=== PATIENT | male | born 1950 | race Caucasian/White ===

== ENCOUNTER 2017-08-18 05:03 | Emergency (ER) | payer OTHER, MEDICAID ==
[2017-08-18 05:10] VITALS: TEMP 97.3; O2SAT 96
[2017-08-18] MEDS ORDERED: fentaNYL 100 MCG/2 ML INJ ONE (05:55)
[2017-08-18] MEDS ORDERED: ONDANSETRON 4 MG/2 ML VIAL ONE (05:55)
[2017-08-18] MEDS ORDERED: NS 1,000 ML IV ONE (05:56)
[2017-08-18] MEDS ORDERED: fentaNYL 100 MCG/2 ML INJ IVP ONE (05:56)
[2017-08-18] MEDS ORDERED: ONDANSETRON 4 MG/2 ML VIAL IVP ONE (05:56)
--- NOTE | 2017-08-18 05:57 | EDPHY ---
H & P Stated Complaint: ABDOMINAL PAIN WITH N,V - Personal History Current Tetanus/Diphtheria Vaccine: Yes Current Tetanus Diphtheria and Acellular Pertussis (TDAP): Yes - Medical/Surgical History Hx Asthma: No Hx Chronic Respiratory Disease: Yes Hx Diabetes: Yes Hx Cardiac Disease: No Hx Renal Disease: No Hx Cirrhosis: No Hx Alcoholism: Yes Hx HIV/AIDS: No Hx Splenectomy or Spleen Trauma: No Other PMH: GALLSTONES. PROSTATES [place] 2016. COPD, DM II, tremors - Social History Smoking Status: Former smoker Time Seen by Provider: 08/18/17 05:27 HPI/ROS: Chief Complaint: Abdominal pain, nausea, vomiting HPI: This 67-year-old male woke this morning with crampy abdominal pain, nausea and vomiting. He has not had any diarrhea or constipation. No blood or coffee-ground appearing emesis. Pain is crampy and diffuse. He has a history of a similar episode of pain a week or 2 ago but did not have any nausea or vomiting associated with that. That has since resolved. He does have a history of prostate cancer and is scheduled to start radiation therapy tomorrow. He is not currently on any chemotherapeutic medications. He has had prostatectomy laparoscopically in the past but no other surgeries. No chest pain or shortness of breath. No fevers or chills. ROS: 10 point Review of Systems is negative except as noted in the HPI. PMH: Prostate cancer, benign tremor, depression Social History: No smoking, no alcohol, no recreational drug use Family History: non-contributory Physical Exam: Gen: Awake, Alert, No Distress HEENT: Nose: no rhinorrhea Eyes: PERRLA, EOMI Mouth: Moist mucosa Neck: Supple, no JVD Chest: nontender, lungs clear to auscultation Heart: S1, S2 normal, no murmur Abd: Soft, non-tender, no guarding Back: no CVA tenderness, no midline tenderness Ext: no edema, non-tender Skin: no rash Neuro: CN II-XII intact, Sensation grossly intact, Strength 5/5 in bilateral upper and lower extremities (Edward Adkins) Constitutional: Initial Vital Signs Temperature (C) 36.3 C 08/18/17 05:04 Heart Rate 60 08/18/17 05:04 Respiratory Rate 18 08/18/17 05:04 Blood Pressure 152/104 H 08/18/17 05:04 O2 Sat (%) 96 08/18/17 05:04 O2 Delivery Mode Room Air Allergies/Adverse Reactions: No Known Allergies Allergy (Unverified 06/05/11 10:45) Home Medications: Medication Instructions Recorded Acetaminophen [Tylenol 325mg (*)] 325 mg PO DAILY PRN 05/02/16 Herbals/Supplements -Info Only 1 ea PO DAILY 05/02/16 Ranitidine HCl [Zantac] 150 mg PO BID 05/02/16 metFORMIN HCL [Glucophage 500 mg 1,000 mg PO BIDMEAL 05/02/16 (*)] Albuterol [Proventil Inhaler HFA 2 puffs IH Q4 PRN #0 mdi 07/20/16 (*)] DULoxetine [Cymbalta 60 MG (*)] 120 mg PO DAILY 07/20/16 Haloperidol [Haldol 1 MG (*)] 2 mg PO HS #0 tab 07/20/16 Primidone [Mysoline] 50 mg PO HS #0 tab 07/20/16 Medical Decision Making - Diagnostics Imaging Results: Imaging Impressions Abdomen CT 08/18/17 07:08 Impression: 1. Mild gallbladder distention with cholelithiasis without evidence of cholecystitis. 2. Diverticulosis. 3. Moderate fat-containing periumbilical hernia. 4. Small hiatal hernia. 5. Additional findings, as above. Findings discussed with Yogesh Talbot MD on August 18, [address] abdomen pelvis reviewed by me and discussed with Dr. Bekcer shows distended gallbladder with stones which have been present on previous imaging studies. He has diverticulosis but no evidence for diverticulitis. He has a normal appendix. (Yogesh Talbot) ED Course/Re-evaluation: 07 patient signed out to Dr. Talbot pending CT scan of the abdomen pelvis and symptomatic improvement. (Edward Adkins) Patient is seen by me at 7:10. History reviewed and exam reveals mild rlq tenderness to deep palpation. Otherwise no masses and normal bowel sounds. Patient will be further medicated and he and I agreed on CT scan abdomen/pelvis IV Dilaudid. Re-evaluation 8:30 a.m.--patient tells me no pain now. No nausea. He and I discussed imaging and lab results. We will give him some food and drink as this appears to be nonsurgical. We will observe the patient and if he continues to feel well we will discharge him. He is agreeable to this plan Re-evaluation at 9:45 a.m. patient is stable. He has no pain. He and I discussed treatment plan including criteria for return importance of follow-up and further evaluation. He expresses understanding and agreement (Yogesh Talbot) Differential Diagnosis: The etiology of patient's abdominal pain is not clear. I have considered kidney stone, appendicitis, diverticulitis, small-bowel obstruction. (Yogesh Talbot) - Data Points Laboratory Results: Laboratory Results 08/18/17 05:55 08/18/17 05:55 08/18/17 08/18/17 08/18/17 06:30 05:55 05:55 WBC 13.02 10^3/uL H 10^3/uL (3.80-9.50) RBC 5.32 10^6/uL 10^6/uL (4.40-6.38) Hgb 15.5 g/dL g/dL (13.7-17.5) Hct 44.9 % % (40.0-51.0) MCV 84.4 fL fL (81.5-99.8) MCH 29.1 pg pg (27.9-34.1) MCHC 34.5 g/dL g/dL (32.4-36.7) RDW 13.9 % % (11.5-15.2) Plt Count 445 10^3/uL H 10^3/uL (150-400) MPV 8.7 fL fL (8.7-11.7) Neut % (Auto) 52.0 % % (39.3-74.2) Lymph % (Auto) 35.3 % % (15.0-45.0) [place] % (Auto) 7.8 % % (4.5-13.0) Eos % (Auto) 3.5 % % (0.6-7.6) Baso % (Auto) 0.8 % % (0.3-1.7) Nucleat RBC Rel Count 0.0 % % (0.0-0.2) Absolute Neuts (auto) 6.78 10^3/uL H 10^3/uL (1.70-6.50) Absolute Lymphs (auto) 4.60 10^3/uL H 10^3/uL (1.00-3.00) Absolute Monos (auto) 1.01 10^3/uL H 10^3/uL (0.30-0.80) Absolute Eos (auto) 0.45 10^3/uL H 10^3/uL (0.03-0.40) Absolute Basos (auto) 0.10 10^3/uL 10^3/uL (0.02-0.10) Absolute Nucleated RBC 0.00 10^3/uL 10^3/uL (0-0.01) Immature Gran % 0.6 % % (0.0-1.1) Immature Gran # 0.08 10^3/uL 10^3/uL (0.00-0.10) Sodium 142 mEq/L mEq/L (134-144) Potassium 3.7 mEq/L mEq/L (3.5-5.2) Chloride 106 mEq/L mEq/L (97-110) Carbon Dioxide 23 mEq/l mEq/l (22-31) Anion Gap 13 mEq/L mEq/L (8-16) BUN 15 mg/dL mg/dL (7-23) Creatinine 1.1 mg/dL mg/dL (0.7-1.3) Estimated GFR > 60 Glucose 213 mg/dL H mg/dL (70-100) Calcium 9.9 mg/dL mg/dL (8.5-10.4) Total Bilirubin 0.4 mg/dL mg/dL (0.1-1.4) AST 25 IU/L IU/L (17-59) ALT 35 IU/L IU/L (21-72) Alkaline Phosphatase 69 IU/L IU/L (38-126) Troponin I < 0.012 ng/mL ng/mL (0.000-0.034) Total Protein 8.2 g/dL g/dL (6.3-8.2) Albumin 4.5 g/dL g/dL (3.5-5.0) Lipase 148 IU/L IU/L (23-300) Urine Color YELLOW Urine Appearance CLEAR Urine pH 5.0 (5.0-7.5) Ur Specific [place] 1.026 (1.002-1.030) Urine Protein 1+ H (NEGATIVE) Urine Ketones NEGATIVE (NEGATIVE) Urine Blood NEGATIVE (NEGATIVE) Urine Nitrate NEGATIVE (NEGATIVE) Urine Bilirubin NEGATIVE (NEGATIVE) Urine Urobilinogen NEGATIVE EU EU (0.2-1.0) Ur Leukocyte Esterase NEGATIVE (NEGATIVE) Urine RBC 1-3 /hpf /hpf (0-3) Urine WBC NONE SEEN /hpf /hpf (0-3) Ur Epithelial Cells TRACE /lpf /lpf (NONE-1+) Hyaline Casts 1-5 /lpf /lpf (0-1) Urine Mucus TRACE /lpf /lpf (NONE-1+) Urine Glucose 1+ H (NEGATIVE) Medications Given: Discontinued Medications Fentanyl (Sublimaze) 50 mcg IVP EDNOW ONE Stop: 08/18/17 05:57 Last Admin: 08/18/17 05:58 Dose: 50 mcg Hydromorphone HCl (Dilaudid) 0.5 mg IVP EDNOW ONE Stop: 08/18/17 07:21 Last Admin: 08/18/17 07:26 Dose: 0.5 mg Sodium Chloride (Ns) 1,000 mls @ 0 mls/hr IV ONCE ONE; Wide Open PRN Reason: Protocol Stop: 08/18/17 05:57 Last Admin: 08/18/17 05:57 Dose: 1,000 mls Ketorolac Tromethamine (Toradol) 15 mg IVP EDNOW ONE Stop: 08/18/17 06:35 Last Admin: 08/18/17 06:35 Dose: 15 mg Ondansetron HCl (Zofran) 4 mg IVP EDNOW ONE Stop: 08/18/17 05:57 Last Admin: 08/18/17 05:58 Dose: 4 mg Departure - Departure Disposition: Home, Routine, Self-Care Clinical Impression: Abdominal pain Qualifiers: Abdominal location: generalized Qualified Code(s): R10.84 - Generalized abdominal pain Condition: Good Instructions: Acute Abdominal Pain (ED) Additional Instructions: Normal eating, drinking, activity. Return for worsening pain, fever, vomiting. Re-evaluation by Dr. Luke in the next 2-3 days. Referrals: Joesph Luke MD [Primary Care Provider] - 2-3 days without fail
--- NOTE | 2017-08-18 06:06 | CPEKG ---
Heart Rate: 49 RR Interval: 1224 P-R Interval: 132 QRSD Interval: 100 QT Interval: 456 QTC Interval: 412 P [place]: 66 QRS [place]: 28 T Wave [place]: -89 EKG Severity - BORDERLINE ECG - EKG Impression: SINUS BRADYCARDIA EKG Impression: BORDERLINE T ABNORMALITIES, INFERIOR LEADS Electronically Signed By: Edward Adkins 18-Aug-2017 07:15:18
[2017-08-18 06:11] LABS: % IMMATURE GRANULYOCYTES 0.6 % (0.0-1.1); ABSOLUTE IMMATURE GRANULOCYTES 0.08 10^3/uL (0.00-0.10); ADD DIFF? NO; ADD MORPH? NO; ADD SCAN? NO; ATYPICAL LYMPHOCYTE FLAG 0 (0-99); FRAGMENT RBC FLAG 0 (0-99); HEMATOCRIT 44.9 % (40.0-51.0); HEMOGLOBIN 15.5 g/dL (13.7-17.5); LEFT SHIFT FLG 0 (0-99); LIPEMIA HEMOLYSIS FLAG 90 (0-99); MEAN CELL HEMOGLOBIN 29.1 pg (27.9-34.1); MEAN CELL HEMOGLOBIN CONCENTR. 34.5 g/dL (32.4-36.7); MEAN CELL VOLUME 84.4 fL (81.5-99.8); MEAN PLATELET VOLUME 8.7 fL (8.7-11.7); PLATELET CLUMPS FLAG 0 (0-99); PLATELET COUNT 445 10^3/uL (150-400); RED BLOOD CELL COUNT 5.32 10^6/uL (4.40-6.38); RED CELL DISTRIBUTION WIDTH 13.9 % (11.5-15.2)
[2017-08-18 06:17] LABS: ALANINE AMINOTRANSFERASE 35 IU/L (21-72); ALBUMIN 4.5 g/dL (3.5-5.0); ALKALINE PHOSPHATASE 69 IU/L (38-126); ANION GAP 13 mEq/L (8-16); ASPARTATE AMINOTRANSFERASE 25 IU/L (17-59); BILIRUBIN,TOTAL 0.4 mg/dL (0.1-1.4); CALCIUM 9.9 mg/dL (8.5-10.4); CARBON DIOXIDE 23 mEq/l (22-31); CHLORIDE 106 mEq/L (97-110); CREATININE 1.1 mg/dL (0.7-1.3); GLOMERULAR FILTRATION RATE > 60; GLUCOSE 213 mg/dL (70-100); POTASSIUM 3.7 mEq/L (3.5-5.2); SODIUM 142 mEq/L (134-144); TOTAL PROTEIN 8.2 g/dL (6.3-8.2)
[2017-08-18 06:28] LABS: TROPONIN I < 0.012 ng/mL (0.000-0.034)
[2017-08-18] MEDS ORDERED: KETOROLAC 15 MG/1 ML SDV ONE (06:34)
[2017-08-18] MEDS ORDERED: KETOROLAC 15 MG/1 ML SDV IVP ONE (06:34)
[2017-08-18 06:38] LABS: COLOR YELLOW; LEUKOCYTE ESTERASE,URINE NEGATIVE (NEGATIVE); NITRITE,URINE NEGATIVE (NEGATIVE)
[2017-08-18 06:48] LABS: MUCUS TRACE /lpf (NONE-1+); WBC,URINE NONE SEEN /hpf (0-3)
[2017-08-18] MEDS ORDERED: HYDROmorphONE/DILAUDID 1 MG/ML INJ IVP ONE (07:20)
[2017-08-18 07:28] VITALS: RESP 16
[2017-08-18] MEDS ORDERED: IOPAMIDOL (ISOVUE-300) 100 ML BTL ONE (07:37)
[2017-08-18 09:57] VITALS: BP 143/80; PULSE 80
== END 2017-08-18 10:05 | disposition home or self-care (01) ==
PROC: 3E0337Z Introduction of Electrolytic and Water Balance Substance into Peripheral Vein, Percutaneous Approach (ICD-10-PCS; principal; 2017-08-18)
DX: R10.84 Generalized abdominal pain (principal); E11.9 Type 2 diabetes mellitus without complications; J44.9 Chronic obstructive pulmonary disease, unspecified; E86.9 Volume depletion, unspecified; Z79.84 Long term (current) use of oral hypoglycemic drugs; Z85.46 Personal history of malignant neoplasm of prostate; Z87.891 Personal history of nicotine dependence
CPT/HCPCS: 74177; 93005; 96361; 96374; 96375; 99285; J1170; J1885; J2405; J3010; Q9967

== ENCOUNTER 2018-01-19 12:53 | Inpatient (IN) | payer OTHER, MEDICAID ==
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
[2018-01-19] MEDS ORDERED: HYDROmorphONE/DILAUDID 2 MG/ML INJ IVP ONE (13:47)
[2018-01-19 13:55] LABS: PLATELET COUNT 318 10^3/uL (150-400)
[2018-01-19 14:09] LABS: INR 0.98 (0.83-1.16); PROTIME(PATIENT) 13.2 SEC (12.0-15.0)
[2018-01-19] MEDS ORDERED: HYDROmorphONE/DILAUDID 1 MG/ML INJ IVP PRN (14:23)
[2018-01-19] MEDS ORDERED: ONDANSETRON 4 MG/2 ML VIAL IVP PRN (14:23)
[2018-01-19] MEDS ORDERED: ONDANSETRON DISINTEGRATING 4 MG TAB PO PRN (14:23)
[2018-01-19] MEDS ORDERED: ALBUTEROL 60 PUFFS/8 GM MDI IH PRN (14:29)
[2018-01-19] MEDS ORDERED: ACETAMINOPHEN 325 MG TAB PO SCH (14:30)
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
--- NOTE | 2018-01-19 15:14 | CPEKG ---
Heart Rate: 85 RR Interval: 706 P-R Interval: 152 QRSD Interval: 96 QT Interval: 376 QTC Interval: 447 P [place]: 85 QRS [place]: 50 T Wave [place]: -27 EKG Severity - BORDERLINE ECG - EKG Impression: SINUS RHYTHM EKG Impression: LOW VOLTAGE IN FRONTAL LEADS EKG Impression: BORDERLINE T ABNORMALITIES, INFERIOR LEADS Electronically Signed By: Isabelle Bagley 19-Jan-2018 22:02:49
[2018-01-19] MEDS: ACETAMINOPHEN 500 MG TAB PO SCH ×2 (16:07→21:00)
[2018-01-19] MEDS: metFORMIN HCL 500 MG TAB PO SCH (17:30)
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
[2018-01-19] MEDS ORDERED: HALOPERIDOL 1 MG TAB PO SCH (21:00)
[2018-01-19] MEDS ORDERED: NON-FORMULARY NEW DRUG (Ranitidine Hcl [Zantac] 150 MG) PO SCH (21:00)
[2018-01-19] MEDS: PRIMIDONE 50 MG TAB PO SCH (21:00)
[2018-01-19] MEDS: FAMOTIDINE 20 MG TAB PO SCH (21:01)
[2018-01-19] MEDS: oxyCODONE IR 5 MG TAB PO PRN (21:01)
[2018-01-19] MEDS: HALOPERIDOL 2 MG TAB PO SCH (21:01)
[2018-01-20] MEDS: oxyCODONE IR 5 MG TAB PO PRN ×3 (00:16→08:04)
[2018-01-20] MEDS: ACETAMINOPHEN 500 MG TAB PO SCH ×3 (04:39→21:49)
[2018-01-20 04:44] LABS: PLATELET COUNT 283 10^3/uL (150-400)
[2018-01-20] MEDS ORDERED: NS 1,000 ML IV SCH (07:30)
[2018-01-20] MEDS: DULoxetine 60 MG CAP PO SCH (08:02)
[2018-01-20] MEDS: FAMOTIDINE 20 MG TAB PO SCH ×2 (08:13→21:50)
[2018-01-20] MEDS: metFORMIN HCL 500 MG TAB PO SCH ×2 (08:13→17:15)
[2018-01-20] MEDS: SENNOSIDES 1 TAB PO SCH ×2 (08:14→21:50)
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
[2018-01-20] MEDS ORDERED: HYDROmorphone HCL/NS 0.5 MG/ML SYR IVP PRN (16:24)
[2018-01-20] MEDS ORDERED: DEXAMETHASONE 4 MG/ML VIAL IVP ONE (18:10)
[2018-01-20] MEDS ORDERED: TRANEXAMIC ACID 3,000 MG in NS (SYRINGE) 50 ML IRR ONE (18:10)
[2018-01-20] MEDS ORDERED: ROPIVACAINE 0.2% 80 MG, EPINEPHrine 0.2 MG, KETOROLAC TROMETHAMINE 30 MG in SYRINGE 0 ML IU ONE (18:10)
[2018-01-20] MEDS ORDERED: ceFAZolin 2 GM/SWFI 2 GM/20 ML SYR IVP ONE (18:10)
[2018-01-20] MEDS ORDERED: LR 1,000 ML IV ONE (18:23)
--- NOTE | 2018-01-20 18:28 | PDANEPAE ---
ANE History of Present Illness total hip arthroplasty, L ANE Past Medical History - Cardiovascular History Hx Hypertension: No Hx Arrhythmias: No Hx Chest Pain: No Hx Coronary Artery / Peripheral Vascular Disease: No Hx CHF / Valvular Disease: No Hx Palpitations: No - Pulmonary History Hx COPD: Yes Hx Asthma/Reactive Airway Disease: No Hx Recent Upper Respiratory Infection: No Hx Oxygen in Use at Home: No Hx Sleep Apnea: No Sleep Apnea Screening Result - Last Documented: Positive Pulmonary History Comment: COPD - Neurologic History Hx Cerebrovascular Accident: No Hx Seizures: No Hx Dementia: No - Endocrine History Hx Diabetes: Yes Obesity: mild Endocrine History Comment: type 2 for about 5 years, denies peripheral neuropathy - Renal History Hx Renal Disorders: No - Liver History Hx Hepatic Disorders: No - Neurological & Psychiatric Hx Hx Neurological and Psychiatric Disorders: Yes Neurological / Psychiatric History Comment: TREMORS, essential - Cancer History Hx Cancer: Yes Cancer History Comment: PROSTATE CANCER - Congenital Disorder History Hx Congenital Disorders: No - GI History GERD: severe Hx Gastrointestinal Disorders: No - Other Health History Other Health History: NONE - Chronic Pain History Chronic Pain: No - Surgical History Prior Surgeries: GANGLION R WRIST REMOVAL. PLASTIC SURGERY EARS ANE Review of Systems Review of Systems: - Exercise capacity METS (RN): 4 METS ANE Patient History - Allergies Allergies/Adverse Reactions: No Known Allergies Allergy (Unverified 06/05/11 10:45) - Home Medications Home Medications: Acetaminophen [Tylenol 325mg (*)] 325 mg PO DAILY PRN 05/02/16 [Last Taken 05/23] Ranitidine HCl [Zantac] 150 mg PO BID 05/02/16 [Last Taken 07/19/16 05:00] metFORMIN HCL [Glucophage 500 mg (*)] 1,000 mg PO BIDMEAL 05/02/16 [Last Taken 07/16/16 18:00] DULoxetine [Cymbalta 60 MG (*)] 120 mg PO DAILY 07/20/16 [Last Taken Unknown] Primidone [Mysoline] 100 mg PO HS 01/19/18 [Last Taken Unknown] - NPO status NPO Since - Liquids (Date): 01/20/18 NPO Since - Liquids (Time): 00:00 NPO Since - Solids (Date): 01/20/18 NPO Since - Solids (Time): 00:00 - Anes Hx Anes Hx: post operative nausea (at age 13) - Smoking Hx Smoking Status: Former smoker (2 ppd x 30 years, until 25 ya) - Alcohol Use Alcohol Use: None - Family Anes Hx Family Anes Hx: none ANE Labs/Vital Signs - Labs Result Diagrams: 01/20/18 04:25 01/20/18 04:25 - Vital Signs Blood Pressure: 141/81 Heart Rate: 91 Respiratory Rate: 16 O2 Sat (%): 95 Height: 182.88 cm Weight: 92.533 kg ANE Physical Exam - Airway Neck exam: FROM Mallampati Score: Class 2 Mouth exam: normal dental/mouth exam - Pulmonary Pulmonary: clear to auscultation - Cardiovascular Cardiovascular: regular rate and rhythym - ASA Status ASA Status: III ANE Anesthesia Plan Anesthesia Plan: general endotracheal anesthesia (GA vs SAB discussed,questions answered. Pt. prefers GA.)
[2018-01-20] MEDS ORDERED: BUPI/epINEPH/KETOROLAC IU ONE (18:30)
[2018-01-20] MEDS ORDERED: fentaNYL 250 MCG/5 ML INJ ONE (18:37)
[2018-01-20] MEDS ORDERED: PROPOFOL 200 MG/20 ML VIAL ONE (18:37)
[2018-01-20] MEDS ORDERED: MIDAZOLAM 2 MG/2 ML VIAL ONE (18:45)
[2018-01-20] MEDS ORDERED: ONDANSETRON 4 MG/2 ML VIAL ONE (19:44)
[2018-01-20] MEDS ORDERED: fentaNYL 100 MCG/2 ML INJ IVP PRN (19:59)
[2018-01-20] MEDS ORDERED: NALOXONE HCL 0.4 MG/ML INJ IVP PRN (19:59)
[2018-01-20] MEDS ORDERED: HYDROmorphONE/DILAUDID 1 MG/ML INJ IVP PRN (19:59)
[2018-01-20] MEDS ORDERED: ALBUTEROL 3 ML DEYVIAL IH PRN (19:59)
[2018-01-20] MEDS ORDERED: SUGAMMADEX SODIUM 200 MG/2 ML VIAL IVP ONE (20:02)
[2018-01-20] MEDS ORDERED: DIPHENOXYLATE/ATROPINE LOMOTIL 1 TAB PO PRN (20:11)
[2018-01-20] MEDS ORDERED: POLYETHYLENE GLYCOL 3350 17 GM PKT PO PRN (20:11)
[2018-01-20] MEDS ORDERED: PROMETHAZINE HCL 25 MG/ML INJ IVP PRN (20:11)
[2018-01-20] MEDS ORDERED: MAGNESIUM HYDROXIDE 30 ML UDCUP PO PRN (20:11)
[2018-01-20] MEDS ORDERED: CYCLOBENZAPRINE 10 MG TAB PO PRN (20:11)
[2018-01-20] MEDS ORDERED: PROMETHAZINE HCL 25 MG SUPPR PR PRN (20:11)
[2018-01-20] MEDS ORDERED: LACTULOSE 20 GM/30 ML UDCUP PO PRN (20:11)
[2018-01-20] MEDS ORDERED: diphenhydrAMINE 25 MG CAP PO PRN (20:11)
[2018-01-20] MEDS ORDERED: BISACODYL 10 MG SUPP PR PRN (20:11)
--- NOTE | 2018-01-20 20:15 | POSTOPPROG ---
Post Op Note Date of Operation: 01/20/18 Surgeon: Giles Joshi Reprint Sorter: Erica Anesthesiologist: Rashid Anesthesia: GET(General Endotracheal) Pre-op Diagnosis: L displaced femoral neck fx Post-op Diagnosis: sme Indication: pain Procedure: L BOB Findings: fx femoral neck Inf/Abcess present in the surg proc area at time of surgery?: No EBL: 100-500
[2018-01-20] MEDS ORDERED: LR 1,000 ML IV SCH (20:30)
--- NOTE | 2018-01-20 20:54 | POSTANESTH ---
Post Anesthetic Evaluation Cardiovascular Status: Normal, Stable Respiratory Status: Similar to Pre-op Cond. Level of Consciousness/Mental Status: Can Participate in Eval Pain Control: Adequate, Prn Tx Ordered Nausea/Vomiting Control: Adequate, Prn Tx Ordered Complications Possibly Related to Anesthesia: None Noted
[2018-01-20] MEDS: ceFAZolin 2 GM/SWFI 2 GM/20 ML SYR IVP SCH (21:50)
[2018-01-20] MEDS: HALOPERIDOL 2 MG TAB PO SCH (21:50)
[2018-01-20] MEDS: PRIMIDONE 50 MG TAB PO SCH (21:50)
[2018-01-20] MEDS ORDERED: ceFAZolin 2 GM/DEXTROSE 100 ML IV SCH (22:00)
[2018-01-21] MEDS: ACETAMINOPHEN 500 MG TAB PO SCH ×3 (06:02→20:59)
[2018-01-21] MEDS: ceFAZolin 2 GM/SWFI 2 GM/20 ML SYR IVP SCH (06:02)
--- NOTE | 2018-01-21 06:45 | GOP ---
[f rep st] OPERATIVE REPORT DATE OF OPERATION: 01/20/2018 SURGEON: Amador Joshi MD SLOT EDITOR: Erica. ANESTHESIA: General. PREOPERATIVE DIAGNOSIS: Left displaced femoral neck fracture. POSTOPERATIVE DIAGNOSIS: Left displaced femoral neck fracture. PROCEDURE PERFORMED: Left total hip arthroplasty with x-ray. FINDINGS: ESTIMATED BLOOD LOSS: 200 cc. INDICATIONS: The patient has progressively worsening arthritis of the hip which has failed medical management. The patient understands the treatment options including continued non-operative care and has selected surgical intervention. The patient has decided to undergo total hip arthroplasty via the direct anterior approach, understanding the risks of the procedure including , but not limited to, neurovascular injury, infection, persistent pain, component wear and loosening, deep venous thrombosis, pulmonary embolism, limb length inequality, hip instability (including dislocation), and intra-operative fractures. DESCRIPTION OF PROCEDURE: After proper identification of the patient including verification and marking the surgical site, the patient was brought to the operating room and placed in the supine position. All bony prominences were well padded. Anesthesia was induced without complication and intravenous prophylactic antibiotics were administered prior to skin incision. The operative leg was placed in the Trumpf Arch table extension and the well leg in a Yellofin leg fuentes. The patient was prepped and draped in the usual sterile fashion. The C-arm was draped for intra-operative fluoroscopy to check acetabular position, femoral component position including leg length and femoral offset. Attention was then drawn to surgical exposure of the hip. An incision was made with a #10 Bard Chris blade starting 3 cm lateral and 3 cm distal to the anterior superior iliac spine measuring 8-10 cm and coursing distally toward the greater trochanter. The skin and subcutaneous tissues were divided sharply down to the fascia kacie. The fascia kacie was incised in line with the skin incision exposing the underlying tensor fascia kacie muscle. The muscle was bluntly elevated from the fascia and the first extracapsular Cobra retractor was placed laterally at the junction of the superior femoral neck and greater trochanter. The lateral femoral circumflex vessels were identified, cauterized , and divided with the Aquamantys bipolar cautery. The deep investing fascia of the TFL was divided to allow proper mobilization of the muscle preventing damage during the retraction. The reflected head of the rectus femoris muscle was elevated off the anterior hip capsule and a medial Cobra retractor was placed just proximal to the lesser trochanter. The anterior capsulotomy was made sharply from the superolateral acetabulum to the saddle junction of the superior femoral neck and greater trochanter, then coursing inferomedial towards the lesser trochanter. The retractors were then placed in the intracapsular position for femoral neck osteotomy. Corresponding to pre-operative templating, the osteotomy was made with the oscillating saw carefully protecting the greater trochanter and soft tissues. The femoral neck was found to be fractured as expected. The Arch table extension was then placed in 40 degrees external rotation. Attention was then drawn to the acetabular preparation. After placement of the anterior and posterior Cobra retractors outside the labrum and intracapsular, the circumferential labrum was removed sharply. The foveal contents were then removed and hemostasis obtained with cautery. The first reamer selected was sized using the removed femoral head. Reaming began with medialization and then commenced in 2 mm increments at 45 degrees of abduction and 15 degrees of anteversion using fluoroscopic navigation. Reaming ceased 1 mm less than the definitive acetabular component and corresponded to the pre-operative templating. The final acetabular component was inserted using fluoroscopy to achieve proper orientation yielding excellent purchase and stability in the acetabulum. The final acetabular liner was then placed and its seating confirmed. Attention was then turned to the femur. The Arch table extension was placed in extension and adduction, delivering the osteotomized femoral neck into the wound. A 2-pronged femoral elevator was placed at the calcar and another at the tip of the greater trochanter. The posterolateral capsule was released with cautery allowing mobilization of the femur lateral and anterior for preparation. The external rotators were visualized and preserved. A curette and rongeur were used to open the starting point for broaching. Serial broaching started with the #0 broach and ended with the broach that exhibited excellent fit in the proximal femur. A change in pitch during mallet strikes was accompanied by the inability to advance the broach any further. The trial reduction was performed and fluoroscopic navigation was utilized to check limb length. Adjustments were made to equalize limb length accordingly. After the final trials were accepted they were removed and the wound was copiously lavaged. The femoral component was seated to the same depth as the final broach and the femoral head was impacted onto the clean trunnion. The hip was then reduced for the final time and once more fluoroscopy was used to check that limb length equality was achieved. The wound was irrigated and closed in layers, the fascia kacie with 2-0 Quill, the subcutaneous tissue with 2-0 Quill, and the skin with Dermabond. Sterile dressings were applied. Final sharps and sponge counts were accurate. The patient was then transferred to a hospital bed and brought to the recovery room in stable condition. IMPLANTS: Accolade II size 7 at 127, acetabular component a 56 mm Tritanium, the liner is a Trident X3 36 mm, the head is a Biolox Delta 36 mm, +0. /[id number]/MODL MTDD
[2018-01-21] MEDS: DULoxetine 60 MG CAP PO SCH (08:46)
[2018-01-21] MEDS: oxyCODONE IR 5 MG TAB PO PRN (08:47)
[2018-01-21] MEDS: metFORMIN HCL 500 MG TAB PO SCH ×2 (08:47→19:26)
[2018-01-21] MEDS: SENNOSIDES 1 TAB PO SCH ×2 (08:47→21:00)
[2018-01-21] MEDS: FAMOTIDINE 20 MG TAB PO SCH ×2 (08:47→21:00)
[2018-01-21] MEDS ORDERED: POLYETHYLENE GLYCOL 3350 17 GM PKT PO SCH (09:00)
[2018-01-21] MEDS: ENOXAPARIN 40 MG/0.4 ML SYR SC SCH (09:18)
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
--- NOTE | 2018-01-21 11:22 | CPEKG ---
Heart Rate: 112 RR Interval: 536 P-R Interval: 136 QRSD Interval: 80 QT Interval: 316 QTC Interval: 432 P [place]: 82 QRS [place]: 68 T Wave [place]: 76 EKG Severity - OTHERWISE NORMAL ECG - EKG Impression: SINUS TACHYCARDIA Electronically Signed By: Fadi Uriostegui 23-Jan-2018 07:31:03
--- NOTE | 2018-01-21 15:46 | ASMTCMCOM ---
CM Note CM Note Notes: PT rec SNF and pt agreeable, requests referrals to [facility], [facility] and [facility]. Referrals sent in Allscripts. [facility] is first choice. CM to follow Date Signed: 01/21/2018 03:46 PM Electronically Signed By:YUMIKO Mariano
--- NOTE | 2018-01-21 19:29 | SOAPPROG ---
SOAP Progress Note Assessment/Plan: Assessment: POD1 s/p LTHA doing well WBAT LLE rec PT VTE ppx per medicine d/c per PT recs and hospitalist f/u [facility] 3 wks Plan: 01/21/18 19:28 Objective: Vital Signs Temp Pulse Resp BP Pulse Ox 36.7 C 96 16 96/69 L 91 L 01/21/18 16:21 01/21/18 16:21 01/21/18 16:21 01/21/18 16:21 01/21/18 16:21 Laboratory Results 01/21/18 04:50 01/20/18 04:25 01/20/18 01/21/18 01/22/18 05:59 05:59 05:59 Intake Total 250 1810 950 Output Total 1250 750 600 Balance -1000 1060 350 PT 13.2 SEC (12.0-15.0) 01/19/18 13:05 INR 0.98 (0.83-1.16) 01/19/18 13:05 ICD10 Worksheet Patient Problems: Problems Problem Status Onset Left displaced femoral neck fracture Acute Prostate cancer Acute
[2018-01-21] MEDS: PRIMIDONE 50 MG TAB PO SCH (21:00)
[2018-01-21] MEDS: HALOPERIDOL 2 MG TAB PO SCH (21:00)
[2018-01-22] MEDS: ACETAMINOPHEN 500 MG TAB PO SCH ×3 (05:50→21:12)
[2018-01-22] MEDS: ENOXAPARIN 40 MG/0.4 ML SYR SC SCH (08:12)
[2018-01-22] MEDS: DULoxetine 60 MG CAP PO SCH (08:13)
[2018-01-22] MEDS: metFORMIN HCL 500 MG TAB PO SCH ×2 (08:13→18:36)
[2018-01-22] MEDS: SENNOSIDES 1 TAB PO SCH ×2 (08:13→21:12)
[2018-01-22] MEDS: FAMOTIDINE 20 MG TAB PO SCH ×2 (08:13→21:12)
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
[2018-01-22] MEDS: oxyCODONE IR 5 MG TAB PO PRN ×3 (11:22→21:12)
[2018-01-22] MEDS: PRIMIDONE 50 MG TAB PO SCH (21:12)
[2018-01-22] MEDS: HALOPERIDOL 2 MG TAB PO SCH (21:12)
[2018-01-23] MEDS: ACETAMINOPHEN 500 MG TAB PO SCH (06:21)
[2018-01-23 08:03] VITALS: BP 115/69; PULSE 102; RESP 16; TEMP 98.9
[2018-01-23 08:04] VITALS: O2SAT 91
[2018-01-23] MEDS: ENOXAPARIN 40 MG/0.4 ML SYR SC SCH (08:13)
[2018-01-23] MEDS: metFORMIN HCL 500 MG TAB PO SCH (08:13)
[2018-01-23] MEDS: FAMOTIDINE 20 MG TAB PO SCH (08:14)
[2018-01-23] MEDS: SENNOSIDES 1 TAB PO SCH (08:14)
[2018-01-23] MEDS: DULoxetine 60 MG CAP PO SCH (08:14)
--- NOTE | 2018-01-23 10:33 | PDIAF ---
- Diagnosis Diagnosis: hip fracture Code Status: Full Code - Medication Management Discharge Medications: Medications to Continue on Transfer Ranitidine HCl [Zantac] 150 mg PO BID 05/02/16 [Last Taken 07/19/16 05:00] metFORMIN HCL [Glucophage 500 mg (*)] 1,000 mg PO BIDMEAL 05/02/16 [Last Taken 07/16/16 18:00] Albuterol [Proventil Inhaler HFA (*)] 2 puffs IH Q4 PRN #0 mdi 07/20/16 [Last Taken Unknown] DULoxetine [Cymbalta 60 MG (*)] 120 mg PO DAILY 07/20/16 [Last Taken Unknown] Haloperidol [Haldol 1 MG (*)] 2 mg PO HS #0 tab 07/20/16 [Last Taken Unknown] Primidone [Mysoline] 100 mg PO HS 01/19/18 [Last Taken Unknown] Acetaminophen [Tylenol ES 500 mg (*)] 1,000 mg PO Q8 tab 01/23/18 [Last Taken Unknown] Cyclobenzaprine [Flexeril 10 MG (*)] 10 mg PO Q8HRS PRN tab 01/23/18 [Last Taken Unknown] Enoxaparin [Lovenox 40 MG (*)] 40 mg SC DAILY #0 syr 01/23/18 [Last Taken Unknown] Sennosides [Senokot] 1 tab PO BID tab 01/23/18 [Last Taken Unknown] celeCOXIB [Celebrex (*)] 200 mg PO DAILY cap 01/23/18 [Last Taken Unknown] Discharge Medications: Refer to the Discharge Home Medication list for PRN reason. - Orders Services needed: Physical Therapy, Occupational Therapy Diet Recommendation: no restrictions on diet Diet Texture: Regular Texture Diet - Follow Up Care Current Providers and Referrals: Patient,NotPresent [Unknown] - As per Instructions
--- NOTE | 2018-01-23 11:00 | GDS ---
[f rep st] DISCHARGE SUMMARY DISCHARGE DIAGNOSES: 1. Left femoral neck fracture. 2. Chronic obstructive pulmonary disease. 3. Tremor. 4. History of prostate cancer. 5. Tachycardia. 6. Anemia. CONSULTANTS: Dr. Joshi, orthopedic surgery. HOSPITAL COURSE AND STAY BY PROBLEM: Left femoral neck fracture: The patient was admitted to the [facility] where he was initially seen by Jim Larson and ultimately taken to the operating room by Dr. Joshi on 01/20/2018 where he underwent a left total hip arthroplasty. The patient tolerated the procedure well. On the day of discharge, his pain is controlled. The plan is for him to discharge to [facility]. PHYSICAL EXAM: VITAL SIGNS: On the day of discharge, blood pressure 115/69. Pulse was between 90 a nd 102, respiratory rate 16. O2 sat was 91% on room air. Temperature afebrile. GENERAL: In no acu te distress. HEART: S1, S2. LUNGS: Clear. ABDOMEN: Soft. Mildly distended without guarding or r ebound tenderness. PROCEDURES DURING HOSPITAL STAY: Left total hip arthroplasty done by Dr. Joshi on 01/20/2018. DISCHARGE MEDICATIONS: Please refer to discharge medication reconciliation [facility] for details. DISCHARGE INSTRUCTIONS: The patient will be discharged from the hospital to [facility] for fur ther rehabilitation. He should follow up with Dr. Joshi as directed. /[id number]/MODL
--- NOTE | 2018-01-23 11:57 | CPEKG ---
Heart Rate: 103 RR Interval: 583 P-R Interval: 144 QRSD Interval: 92 QT Interval: 324 QTC Interval: 424 P Brothers: 69 QRS Brothers: 24 T Wave Brothers: 79 EKG Severity - BORDERLINE ECG - EKG Impression: SINUS TACHYCARDIA EKG Impression: LOW VOLTAGE IN FRONTAL LEADS EKG Impression: BORDERLINE T ABNORMALITIES, ANT-LAT LEADS Preliminary Awaiting MD Review
--- NOTE | 2018-01-23 12:03 | ASMTCMCOM ---
CM Note CM Note Notes: Pt medically stable for d/c to [facility], orders sent in Allscripts. [facility] scheduled a wc van pickup for 1200. KIMMIE Lechuga called report. Date Signed: 01/23/2018 12:03 PM Electronically Signed By:YUMIKO Mariano
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
== END 2018-01-23 12:15 | DRG 470 ==
LOC: EDUNIT# → F3N 15:28
PROVIDERS: ADMIT Internal Medicine; ATTEND Internal Medicine
PROC: 0SRB04Z Replacement of Left Hip Joint with Ceramic on Polyethylene Synthetic Substitute, Open Approach (ICD-10-PCS; principal; 2018-01-20 13:00)
DX: S72.002A Fracture of unspecified part of neck of left femur, initial encounter for closed fracture (principal); J44.9 Chronic obstructive pulmonary disease, unspecified; R25.1 Tremor, unspecified; R00.0 Tachycardia, unspecified; D64.9 Anemia, unspecified; E11.9 Type 2 diabetes mellitus without complications; Z87.891 Personal history of nicotine dependence; V18.0XXA Pedal cycle driver injured in noncollision transport accident in nontraffic accident, initial encounter; Y92.414 Local residential or business street as the place of occurrence of the external cause
CPT/HCPCS: 96374; 97110-GP; 97116-GP; 97162-GP; 97166-GO; 97530-GP; 97535-GO; G8978-GP-CJ; G8979-GP-CI; G8987-GO-CK; G8988-GO-CI; J0171; J0690; J1170; J1650; J1885; J2250; J2405; J2704; J2795; J3010

== ENCOUNTER → 2018-03-11 | Outpatient (CLI) | payer OTHER, MEDICAID | LOC: BMCIMAGING 15:20 | PROVIDERS: ATTEND Internal Medicine | DX: J98.4 Other disorders of lung (principal) ==